=== PATIENT | male | born 1965 ===

== ENCOUNTER 2018-09-03 04:13 | Emergency (ER) | payer BC ==
[2018-09-03 04:24] VITALS: BP 131/88; PULSE 61; RESP 18; TEMP 97.8; O2SAT 97
--- NOTE | 2018-09-03 04:34 | ED PDOC ---
Arrival/HPI - General Chief Complaint: GI Problem Time Seen by Provider: 09/03/18 04:22 - History of Present Illness Narrative History of Present Illness (Text): 53 y/o M p/w dizziness for about 1 hour that resolved prior to his arrival in ED. Patient states he drank golytly all night for a routine colonoscopy this morning. He states he awoke in the middle of the night, felt nauseated, went to bathroom, vomited, and then had sudden, dramatic spinning sensation. He states symptoms are now resolved and he feels normal. He denies LOC, lightheadedness, chest pain, dyspnea, numbness, weakness, speech change. Past Medical History - Cardiac Hx Cardiac Disorders: Yes Hx Hypertension: Yes - Renal Hx Renal Disorder: Yes - Psychiatric Hx Substance Use: No - Surgical History Hx Cholecystectomy: Yes Hx Orthopedic Surgery: Yes (BL rotator cuff, R ankle) Family/Social History Family/Social History: No Known Family HX Smoking Status: Never Smoked Hx Alcohol Use: Yes (former) Hx Substance Use: No Allergies/Home Meds Allergies/Adverse Reactions: Allergies No Known Allergies Allergy (Verified 09/03/18 04:20) Home Medications: Home Meds Medication Instructions Recorded Confirmed Lisinopril [Zestril] 20 mg PO DAILY 09/03/18 09/03/18 Metoprolol Tartrate 100 mg PO DAILY 09/03/18 09/03/18 Pantoprazole Sodium [Protonix] 40 mg PO DAILY 09/03/18 09/03/18 azaTHIOprine [Azathioprine] 50 mg PO DAILY 09/03/18 09/03/18 Review of Systems - Physician Review All systems were reviewed & negative as marked: Yes - Review of Systems Constitutional: absent: Fevers Respiratory: absent: SOB Cardiovascular: absent: Chest Pain Physical Exam - Physical Exam Narrative Physical Exam (Text): gen nad head nc/at eyes perrl ent mmm neck supple chest not enderness cv reg rate lungs cta b/l abd soft, nt back no cva tenderness skin no rash extremities no edema neuro alert, oriented x 3, cn ii to xii intact, motor intact x 4, sensation to light touch intact bilaterally, gait normal Vital Signs Temp Pulse Resp BP Pulse Ox 09/03/18 04:24 97.8 F 61 18 131/88 97 Medical Decision Making ED Course and Treatment: patient without any symptoms or physical exam findings at this time. normal vital signs. will discharge. likely episode of bppv. patient states has ent he sees, will follow up. instructed to return to ed for constant vertigo, numbness, weakness, speech change, or any other neurological deficit. Disposition/Present on Arrival - Present on Arrival Any Indicators Present on Arrival: No History of DVT/PE: No History of Uncontrolled Diabetes: No Urinary Catheter: No History of Decub. Ulcer: No History Surgical Site Infection Following: None - Disposition Have Diagnosis and Disposition been Completed?: Yes Diagnosis: Vertigo Disposition: HOME/ ROUTINE Disposition Time: 04:32 Patient Plan: Discharge Condition: STABLE Discharge Instructions (ExitCare): Vertigo (a Type of Dizziness) Prescriptions: Meclizine [Antivert] 25 mg PO TID PRN #20 tab PRN Reason: Dizziness Forms: [facility] (E[place]ian)
== END 2018-09-03 04:40 | disposition home or self-care (01) ==
LOC: ED 04:13
DX: R42 Dizziness and giddiness (principal)